=== PATIENT | male | born 1960 | race Caucasian/White ===

== ENCOUNTER 2016-10-25 07:00 | Day surgery (SDC) | payer SELFPAY ==
[2016-10-22 09:22] LABS: BASOPHILS 0.2 %; BASOPHILS ABSOLUTE 0.01 10/3/uL (0.0-0.16); EOSINOPHILS 3.8 %; EOSINOPHILS ABSOLUTE 0.24 10/3/uL (0.0-0.53); HEMATOCRIT 37.7 % (40.0-51.0); HEMOGLOBIN 12.8 g/dL (13.6-17.8); IMMATURE GRANULOCYTES 0.2 %; IMMATURE GRANULOCYTES ABSOLUTE 0.01 10/3/uL (0.0-0.11); LYMPHOCYTES ABSOLUTE 2.09 10/3/uL (0.67-4.30); MANUAL DIFF NO %; MEAN CORPUSCULAR HEMOGLOB 31.2 pg (26.0-34.0); MEAN PLATELET VOLUME 11.3 fL (9.2-13.0); MONOCYTES 9.2 %; MONOCYTES ABSOLUTE 0.58 10/3/uL (0.21-1.20); NEUTROPHILS 53.6 %; PLATELET COUNT 265 10/3/uL (150-400); WHITE BLOOD CELLS 6.3 10/3/uL (4.5-10.5)
[2016-10-22 09:50] LABS: A/G RATIO 1.2 (0.7-1.9); ALBUMIN 3.8 G/DL (3.5-5.0); ALKALINE PHOSPHATASE 95 U/L (45-117); BUN (BLOOD UREA NITROGEN) 14 MG/DL (6-23); CALCIUM, SERUM 9.2 MG/DL (8.5-10.4); CHLORIDE, SERUM 105 MMOL/L (96-112); CO2 (CARBON DIOXIDE) 30 MMOL/L (24-34); CREATININE 1.18 MG/DL (0.70-1.30); GFR AFRICAN AMERICAN 78 ML/MIN (>=60); GFR NON AFRICAN AMERICAN 68 ML/MIN (>=60); GLOBULIN 3.1 G/DL (2.5-4.1); GLUCOSE, SERUM 171 MG/DL (60-99); POTASSIUM, SERUM 3.9 MMOL/L (3.5-5.3); SGOT(AST) 15 U/L (5-40); SGPT(ALT) 34 U/L (5-65); SODIUM, SERUM 142 MMOL/L (135-148); TOTAL BILIRUBIN 0.5 MG/DL (0-1.2); TOTAL PROTEIN 6.9 G/DL (6.0-8.5)
--- NOTE | ~2016-10-25 | OP ---
Record Of Operation [facility] [address] [place]. [address] NAME: HAYDEN WASHINGTON JR : 56 STATUS : [facility] UNIT#: [id number] AGE: 56 ADM/REG DATE : 10/25/16 MR#: [id number] REPORT SERV DATE: 11/02/16 DICTATED BY: JOSI QURESHI III DATE: 11/02/16 REPORT STATUS : Draft TRANSCRIBED BY: MODMario DATE: 11/02/16 DATE OF PROCEDURE: 10/25/2016 Date of procedure is 10/25/2016 (this was the second history and physical on this patient which was dictated on the day of surgery). PREOPERATIVE DIAGNOSIS: Malignant melanoma of the back, with incomplete resection. POSTOPERATIVE DIAGNOSIS: Malignant melanoma of the back, with incomplete resection. PROCEDURE: Wide local resection of malignant melanoma of the back with bilateral axillary sentinel lymph node biopsy. SURGEON: Dr. Josi Qureshi. ANESTHESIA: General with intubation. COMPLICATIONS: None. ESTIMATED BLOOD LOSS: Less than 5 mL. SPECIMENS: Melanoma from the back and left and right axillary sentinel lymph node. DRAINS: None. LAP AND SPONGE COUNT: Correct x3. BRIEF HISTORY: This 56-year-old male presented with a biopsy-proven malignant melanoma of the mid back. This lesion had been resected elsewhere. It was 9 mm in depth. The margins of resection were not clear. It was felt that wide resection of the primary melanoma site with sentinel lymph node biopsy was indicated. The procedure, risks, benefits, and alternatives, including but not limited to the risk of bleeding, infection, pain, swelling, scarring, deformity in the areas likely to involve both axilla, wound failure, wound dehiscence, nerve injury, chronic paresthesia, pain, numbness, neuralgia or neuroma of either or both extremities or the back, nerve injury with muscle weakness or paralysis in the muscles of upper back or shoulder on either or both sides, chronic lymphedema of either or both sides, possible need to return for further surgery, including bilateral axillary lymph node dissection and unforeseen complications including deep venous thrombosis, pulmonary embolus, myocardial infarction, stroke, pneumonia, and , were fully explained to the patient prior to surgery. The expected length of recovery was explained. The patient's questions were answered. He understood the risks and agreed to the surgery as planned. DESCRIPTION OF PROCEDURE: After being properly identified and after discussing the risks of surgery with the patient again in the preoperative area and after lymphoscintigraphy had been performed per Radiology, showing both axillae to contain sentinel lymph nodes, the Record Of Operation [facility] [place]. [address] NAME: HAYDEN WASHINGTON JR : 56 STATUS : [facility] UNIT#: [id number] AGE: 56 ADM/REG DATE : 10/25/16 MR#: [id number] REPORT SERV DATE: 11/02/16 DICTATED BY: JOSI QURESHI III DATE: 11/02/16 REPORT STATUS : Draft TRANSCRIBED BY: SULLY DATE: 11/02/16 patient was taken to the operating room and placed in supine position on a stretcher adjacent to the operating room table. General anesthesia was administered. He was intubated without difficulty. He was then carefully rolled into the prone position on the operating room table. Appropriate pads were placed beneath his chest and extremities. The back was prepped and draped sterilely in the usual fashion. After an appropriate "time- out" per JCAHO standards, an elliptical shaped horizontally oriented incision was made around the previous lesion which had been biopsied. A vertical incision was not made as the lesion itself was oriented horizontally. The incision was continued through the subcutaneous tissue down to the fascia. The entire block of tissue consisting of skin and subcutaneous tissue and fascia was then resected. Appropriate orienting sutures were placed. The length of the incision was approximately 8.5 cm. Using sharp dissection, the skin and subcutaneous tissue around the entire periphery of this new defect was mobilized extensively. Extensive mobilization was required in order to allow for primary closure. Hemostasis was assured. The subcutaneous tissue was closed in layers with interrupted 2-0 Vicryl sutures. The skin was closed interrupted 3-0 Prolene sutures. The incision was injected with 0.5% Marcaine. The patient was then carefully unchanged into the supine position. His arms were placed on arm boards carefully and appropriately padded and protected. Both axilla and chest were prepped and draped sterilely in the usual fashion. We turned our attention first to the left axilla. The incision was made transversely in the left axilla. With the navigator probe, we identified a sentinel lymph node. This sentinel lymph node appeared normal in size. It was resected. The ex-vivo 10-second count of this lymph node was approximately 2000. There was another cluster of lymph nodes which were also felt to be sentinel lymph nodes and these were resected. On imaging with the probe, these had minimal activity. These were sent and labeled as non-sentinel lymph nodes from the left axilla. The probe was placed in the axilla after removal of these lymph nodes, and the background count of the axilla after removal of sentinel lymph nodes over 10 seconds was essentially zero. Hemostasis was assured. The subcutaneous tissue was closed with interrupted 3-0 chromic suture. The skin was closed with a running subcuticular 4-0 Monocryl stitch. The incision was injected with 0.5% Marcaine. We then turned our attention to the right axilla. A similar incision was made in the right axilla transversely. We again dissected into the axilla and using the navigator probe, we identified a cluster of sentinel lymph nodes. These were resected. The ex-vivo 10-second count of these was approximately 1500. The background count of the axilla after removal of these lymph nodes over 10 seconds was essentially 0. Hemostasis was assured. The incision was closed as on the opposite side. Dressings were applied. Anesthesia was reversed. The patient was taken to the recovery room in stable condition, having tolerated the procedure well. His family was informed of the results of surgery. The patient was discharged when stable and comfortable. His family was advised that he should keep his wound clean and dry for 48 hours and that he should not drive for three to four days after surgery or while using narcotics and that he should resume his usual medications. He was asked to return in two weeks for followup or sooner if any fever, chills, wound drainage, or other problems prior to that time. He was given a Record Of Operation [address] [place]. [address] NAME: FELIXHAILEEHAYDENASHLIE RUBIN JR : 56 STATUS : [facility] UNIT#: [id number] AGE: 56 ADM/REG DATE : 10/25/16 MR#: [id number] REPORT SERV DATE: 11/02/16 DICTATED BY: JOSI QURESHI III DATE: 11/02/16 REPORT STATUS : Draft TRANSCRIBED BY: SULLY DATE: 11/02/16 prescription for Percocet 7.5 one t.i.d., #12, as needed for pain, which he was advised not to use while driving. RHJ/JASKARANL Josi Qureshi III, M.D. / [id number] CC: Edis Crocker III, M.D.
--- NOTE | ~2016-10-25 | PREOPHP ---
PreOp History and Physical [place] [id number] [facility] [place]. [address] NAME: HAYDEN WASHINGTON JR : 56 STATUS : [facility] UNIT#: [id number] AGE: 56 ADM/REG DATE : 10/25/16 MR#: [id number] REPORT SERV DATE: 11/03/16 DICTATED BY: JOSI QURESHI III DATE: 11/03/16 REPORT STATUS : Draft TRANSCRIBED BY: MODL DATE: 11/03/16 (This is a second history and physical on this patient, which was dictated prior to surgery). HISTORY OF PRESENT ILLNESS: This 56-year-old male comes to the operating room for wide local resection of a malignant melanoma of the back, with sentinel lymph node biopsy. The patient complains of a lesion over his back, which has been increasing in size for the last five to six months. The patient had been to a local emergency room on three separate occasions and sent home. [facility] was [facility] where the lesion was removed. It was found to be a malignant melanoma. An excisional biopsy apparently was performed. Pathology at that time showed this to be an ulcerated malignant melanoma, 9 mm in thickness. The patient comes to the operating room now for wide local resection of the primary malignancy over the back in order to obtain clear margins (clear margins were not obtained at the initial excision performed elsewhere). He also comes for sentinel lymph node biopsy. PAST MEDICAL HISTORY: 1. Hypertension. 2. Diabetes mellitus. MEDICATIONS: Lisinopril, hydrochlorothiazide, clonidine, metformin. FAMILY HISTORY: Positive for diabetes. SOCIAL HISTORY: No history of tobacco or alcohol use. ALLERGIES: NONE. REVIEW OF SYSTEMS: The patient's 14-point review of systems is otherwise unremarkable. PHYSICAL EXAMINATION: GENERAL: A large, somewhat obese male, in no acute distress. He is alert and oriented x3. VITAL SIGNS: Blood pressure 155/96, temperature 97.9, pulse 80. HEENT: Unremarkable. NECK: Unremarkable. No adenopathy. NEURO: Cranial nerves 2 through 12 are normal. LUNGS: Clear. CARDIAC: Normal. LYMPHATIC: Both left and right axilla normal with no adenopathy. Supraclavicular area is normal with no adenopathy. Groins are normal with no adenopathy. ABDOMEN: Soft, nontender. EXTREMITIES: Normal. SKIN: Over the patient's mid back, is a discolored area. This is over the central area of the back. It is about 3 x 5 cm in size. It is an erythematous area. The primary lesion apparently has been excised. There is a small scab in the center of this erythematous area. It is unclear if the erythematous discolored area is the melanoma or results of the surgery. PreOp History and Physical [address] [address] NAME: HAYDEN WASHINGTON JR : 56 STATUS : [facility] PAT#: [id number] AGE: 56 ADM/REG DATE : 10/25/16 MR#: [id number] REPORT SERV DATE: 11/03/16 DICTATED BY: JOSI QURESHI III DATE: 11/03/16 REPORT STATUS : Draft TRANSCRIBED BY: SULLY DATE: 11/03/16 The size of this area is as described. ASSESSMENT: 1. This 56-year-old male with biopsy-proven 9-mm thickness malignant melanoma of the back. 2. Obesity. 3. Diabetes mellitus. 4. Hypertension. PLAN: The patient comes to the operating room now for wide local resection of the melanoma of the back with sentinel lymph node biopsy, which will likely involve one or both axilla. This procedure, the risks, benefits, and alternatives, including but not limited to the risk for bleeding; infection; pain; swelling; scarring; deformity to the area; seroma formation; hematoma formation; wound failure; wound dehiscence; nerve injury; chronic paresthesia or pain in the back or either both extremities; nerve injury with muscle weakness or paralysis of the muscles of upper back or shoulder on either or both sides; chronic lymphedema of either or both sides; possible need to return to the operating room for wider excision or completion axillary lymph node dissection; and unforeseen complications including deep venous thrombosis, pulmonary embolus, myocardial infarction, stroke, pneumonia, and , have been explained to the patient prior to surgery. His questions have been answered. He understands the risks and agrees to surgery as planned. ANICETO/SULLY Josi Qureshi III, M.D. / [id number] CC: Edis Crocker III, M.D.
[~2016-10-25 07:00] MED LIST: CAT1 PO; GLUCPH PO; HYDROCHLOROT25 MG PO; ZESTRIL20 MG PO
== END 2016-10-25 17:15 | disposition home or self-care (01) ==
LOC: SDC 07:00
PROVIDERS: Surgery
PROC: 0JB70ZZ Excision of Back Subcutaneous Tissue and Fascia, Open Approach (ICD-10-PCS; 2016-10-25)
PROC: 07B60ZX Excision of Left Axillary Lymphatic, Open Approach, Diagnostic (ICD-10-PCS; 2016-10-25)
PROC: 07B50ZX Excision of Right Axillary Lymphatic, Open Approach, Diagnostic (ICD-10-PCS; 2016-10-25)
PROC: 0JQ70ZZ Repair Back Subcutaneous Tissue and Fascia, Open Approach (ICD-10-PCS; principal; 2016-10-25 11:45)
DX: C43.59 Malignant melanoma of other part of trunk (principal); I10 Essential (primary) hypertension; E11.9 Type 2 diabetes mellitus without complications; Z83.3 Family history of diabetes mellitus; Z79.84 Long term (current) use of oral hypoglycemic drugs; Z79.899 Other long term (current) drug therapy; Z98.890 Other specified postprocedural states
CPT/HCPCS: 71020; 78195; 80053; 82962; 85025; 88305; 88307; 88341; 88342; 88360; 93005; A9541; J0360; J0690; J2250; J2270; J2405; J2710; J3010